=== PATIENT | male | born 1980 | race Caucasian/White ===

== ENCOUNTER 2016-11-20 09:30 | Emergency (ER) | payer SELFPAY ==
[~2016-11-20] VITALS: Ht 193 cm; Wt 76.0 kg
[2016-11-20 09:33] VITALS: BP 128/90; PULSE 96; RESP 16; TEMP 98.2; O2SAT 98
--- NOTE | 2016-11-20 10:12 | PD ---
HPI Chief Complaint: Flank/Kidney Pain Time Seen by Provider: 10:07 Travel History International Travel<30 days: No Contact w/Intl Traveler<30days: No Traveled to known affect area: No History of Present Illness HPI This 36-year-old male is complaining of right flank pain. The pain started last night and this been coming and going since then. Quite severe at times. He had some nausea and vomiting. He thinks kidney stone about a year he has no allergies. No history of trauma. Pain is aggravated by urination. Says that he was a heavy drinker years ago and has a history of pancreatitis [facility] Past Medical History Kidney Stones: Yes Tetanus Vaccination: > 5 Years Influenza Vaccination: No Past Surgical History Cholecystectomy: Yes Social History Alcohol Use: Yes (SOCIAL) Tobacco Use: Yes (SOCAIL) Substance Use: No Allergies-Medications (Allergen,Severity, Reaction): Coded Allergies: No Known Allergies (Unverified , 11/20/16) Reported Meds & Prescriptions Reported Meds & Active Scripts Active No Active Prescriptions or Reported Medications Review of Systems General / Constitutional: No: Fever, Chills Eyes: No: Diploplia, Blurred Vision HENT: No: Headaches, Vertigo Cardiovascular: No: Chest Pain or Discomfort Respiratory: No: Cough, Shortness of Breath Gastrointestinal: Positive: Nausea, Vomiting Genitourinary: Positive: Flank Pain Musculoskeletal: No: Myalgias, Arthralgias Skin: No Rash, No Dryness Neurologic: No: Focal Abnormalities Psychiatric: No: Anxiety Endocrine: No: Cold Intolerance Hematologic/Lymphatic: No: Easy Bruising Physical Exam Narrative GENERAL: Well-developed male SKIN: Focused skin assessment warm/dry. HEAD: Atraumatic. Normocephalic. EYES: Pupils equal and round. No scleral icterus. No injection or drainage. ENT: No nasal bleeding or discharge. Mucous membranes pink and moist. NECK: Trachea midline. No JVD. CARDIOVASCULAR: Regular rate and rhythm. No murmur appreciated. RESPIRATORY: No accessory muscle use. Clear to auscultation. Breath sounds equal bilaterally. GASTROINTESTINAL: Abdomen soft, non-tender, nondistended. Hepatic and splenic margins not palpable. Some right CVA tenderness MUSCULOSKELETAL: No obvious deformities. No clubbing. No cyanosis. No edema. NEUROLOGICAL: Awake and alert. No obvious cranial nerve deficits. Motor grossly within normal limits. Normal speech. PSYCHIATRIC: Appropriate mood and affect; insight and judgment normal. Data Data Last Documented VS Vital Signs Date Time Temp Pulse Resp B/P Pulse Ox O2 Delivery O2 Flow Rate FiO2 11/20/16 09:33 98.2 96 16 128/90 98 Orders Urinalysis - C+S If Indicated (11/20/16 10:01) Basic Metabolic Panel (Bmp) (11/20/16 10:10) Complete Blood Count With Diff (11/20/16 10:10) Ct Abd/Pel W/O Iv Contrast (11/20/16 10:10) Ketorolac Inj (Toradol Inj) (11/20/16 10:15) Ondansetron Inj (Zofran Inj) (11/20/16 10:15) Sodium Chloride 0.9% Flush (Ns Flush) (11/20/16 10:15) Hydromorphone Pf Inj (Dilaudid Pf Inj) (11/20/16 10:15) Sodium Chlor 0.9% 1000 Ml Inj (Ns 1000 M (11/20/16 11:00) Labs Laboratory Tests Test 11/20/16 11/20/16 10:15 10:50 White Blood Count 6.3 TH/MM3 Red Blood Count 4.94 MIL/MM3 Hemoglobin 14.8 GM/DL Hematocrit 44.4 % Mean Corpuscular Volume 89.9 FL Mean Corpuscular Hemoglobin 30.1 PG Mean Corpuscular Hemoglobin 33.4 % Concent Red Cell Distribution Width 14.1 % Platelet Count 227 TH/MM3 Mean Platelet Volume 9.1 FL Neutrophils (%) (Auto) 57.1 % Lymphocytes (%) (Auto) 27.2 % Monocytes (%) (Auto) 9.5 % Eosinophils (%) (Auto) 4.9 % Basophils (%) (Auto) 1.3 % Neutrophils # (Auto) 3.6 TH/MM3 Lymphocytes # (Auto) 1.7 TH/MM3 Monocytes # (Auto) 0.6 TH/MM3 Eosinophils # (Auto) 0.3 TH/MM3 Basophils # (Auto) 0.1 TH/MM3 CBC Comment DIFF FINAL Differential Comment Sodium Level 143 MEQ/L Potassium Level 3.6 MEQ/L Chloride Level 105 MEQ/L Carbon Dioxide Level 28.4 MEQ/L Anion Gap 10 MEQ/L Blood Urea Nitrogen 15 MG/DL Creatinine 0.83 MG/DL Estimat Glomerular Filtration 105 ML/MIN Rate Random Glucose 112 MG/DL Calcium Level 8.4 MG/DL Urine Collection Type CLEAN CATCH Urine Color YELLOW Urine Turbidity CLEAR Urine pH 6.0 Urine Specific [place] 1.012 Urine Protein NEG mg/dL Urine Glucose (UA) NEG mg/dL Urine Ketones NEG mg/dL Urine Occult Blood LARGE Urine Nitrite NEG Urine Bilirubin NEG Urine Leukocyte Esterase NEG Urine RBC 100-200 /hpf Urine WBC 0-2 /hpf Urine Squamous Epithelial 0-5 /hpf Cells Microscopic Urinalysis Comment CULT NOT INDICATED Urine Collection Time 10:50 MDM Medical Decision Making Medical Screen Exam Complete: Yes Emergency Medical Condition: Yes Medical Record Reviewed: Yes Differential Diagnosis Differential includes musculoskeletal pain, renal colic, pyelonephritis Narrative Course Urine does show red cells. CT scan of the abdomen and pelvis does not show a obstructing ureteral stone. Patient did get relief with pain medication may have a stone which is not apparent on CT scan or other etiology for his hematuria. He released with pain medications recommendations for follow-up with urology Diagnosis Primary Impression: Hematuria Scripts Oxycodone-Acetaminophen (Percocet)10-325 mg Tab1 Tab PO Q4H PRN (PAIN) #20 TAB Ref 0 Prov:Merlin Cho MD 11/20/16 Disposition: 01 DISCHARGE HOME Condition: Stable Merlin Cho MD Nov 20, 2016 10:12
[2016-11-20] MEDS ORDERED: KETOROLAC TROMETHAMINE 30 MG/ML (IVP) VIAL IVP ONE (10:15)
[2016-11-20] MEDS ORDERED: HYDROmorphone HCL PF 1 MG/ML VIAL IVS ONE (10:15)
[2016-11-20] MEDS ORDERED: SODIUM CHLORIDE 0.9% FLUSH 10 ML FLUSH IVF PRN (10:15)
[2016-11-20] MEDS ORDERED: ONDANSETRON HCL 4 MG/2 ML VIAL IVP ONE (10:15)
[2016-11-20 10:19] LABS: AUTOMATED NEUTROPHIL # 3.6 TH/MM3 (1.8-7.7); BASOPHIL # 0.1 TH/MM3 (0-0.2); BASOPHIL % 1.3 % (0.0-2.0); EOSINOPHIL # 0.3 TH/MM3 (0-0.4); EOSINOPHIL % 4.9 % (0.0-4.0); HEMATOCRIT 44.4 % (39.0-51.0); HEMO FLAGS DIFF FINAL; LYMPH % 27.2 % (9.0-44.0); LYMPHOCYTE # 1.7 TH/MM3 (1.0-4.8); MEAN CELL VOLUME 89.9 FL (80.0-100.0); MEAN CORPUSCULAR HEMOGLOBIN 30.1 PG (27.0-34.0); MEAN CORPUSCULAR HGB CONC 33.4 % (32.0-36.0); MONO % 9.5 % (0.0-8.0); NEUT % 57.1 % (16.0-70.0); PLATELET COUNT 227 TH/MM3 (150-450); RED BLOOD COUNT 4.94 MIL/MM3 (4.50-5.90); RED CELL DISTRIBUTION WIDTH 14.1 % (11.6-17.2); WHITE BLOOD COUNT 6.3 TH/MM3 (4.0-11.0)
[2016-11-20 10:31] LABS: POTASSIUM 3.6 MEQ/L (3.5-5.1)
[2016-11-20 10:34] LABS: BICARBONATE 28.4 MEQ/L (21.0-32.0)
--- NOTE | 2016-11-20 10:50 | RADHPO ---
EXAM DATE/TIME: 11/20/2016 10:27 [facility] COMPARISON: No previous studies available for comparison. INDICATIONS : Right flank pain. ORAL CONTRAST: No oral contrast ingested. RADIATION DOSE: 8.76 CTDIvol (mGy) MEDICAL HISTORY : Renal calculi. SURGICAL HISTORY : Cholecystectomy. ENCOUNTER: Initial ACUITY: 1 day PAIN SCALE: 7/10 LOCATION: Right flank TECHNIQUE: Volumetric scanning of the abdomen and pelvis was performed. Using automated exposure control and ad justment of the mA and/or kV according to patient size, radiation dose was kept as low as reasonably achievable to obtain optimal diagnostic quality images. FINDINGS: CT Abdomen: There are calcifications throughout the pancreas from prior episodes of pancreatitis. The re are multiple tiny stones in both kidneys. The right kidney there are 5 maybe 6 separate tiny 1-2 m m stones. In the left kidney there are 3 separate 1-2 mm stones. There is no ureteral stone and there is no hydronephrosis on either side. The liver, spleen, adrenals are unremarkable. There is no evide nce for any appreciable pathological adenopathy, free fluid, or bowel obstruction. CT pelvis: There is no evidence for mass, abscess formation, or any significant adenopathy within the pelvis. The prostate gland is inhomogeneous and measures 4.2 x 4.9 cm in AP and transverse diameters and nonspecific. There are a few gas bubbles within the iliac bone near the SI joint characteristic of pneumatocysts probably of no clinical significance. CONCLUSION: Calcifications in the pancreas from prior episodes of chronic pancreatitis and/or mul tiple tiny nonobstructing stones in both kidneys. Dinesh Anthony MD on November 20, 2016 at 10:42 Board Certified Radiologist. This report was verified electronically.
[2016-11-20 10:54] LABS: BLOOD, URINE LARGE (NEG); GLUCOSE,URINE NEG (NEG); KETONE, URINE NEG (NEG); NITRITE,URINE NEG (NEG)
[2016-11-20] MEDS ORDERED: SODIUM CHLOR 0.9% 1000 ML INJ 1,000 ML IV ONE (11:00)
[2016-11-20 11:03] LABS: METHOD OF COLLECTION CLEAN CATCH; URINE COLOR YELLOW (YELLW/STRAW); WBC, URINE 0-2 /hpf (0-5)
[2016-11-20 11:04] LABS: COMMENT (UR) CULT NOT INDICATED; CULTURE IF INDICATED CULT NOT INDICATED; RBC, URINE 100-200 /hpf (0-3); SQUAMOUS EPITHELIAL CELL URINE 0-5 /hpf (0-5)
[2016-11-20] MEDS ORDERED: PERC10TA27 PO (11:49)
[2016-11-20 12:01] VITALS: BP 134/80
== END 2016-11-20 12:08 | disposition home or self-care (01) ==
LOC: PHED 09:30
DX: R31.9 Hematuria, unspecified (principal); R11.2 Nausea with vomiting, unspecified; Z87.442 Personal history of urinary calculi; Z72.0 Tobacco use
CPT/HCPCS: 74176; 80048; 81001; 85025; 96374; 96375; 99284; J1170; J1885; J2405

== ENCOUNTER 2016-11-24 12:00 | Emergency (ER) | payer MEDICAID, OTHER ==
[~2016-11-24] VITALS: Ht 193 cm; Wt 74.0 kg
[~2016-11-24 12:00] MED LIST: PERC10TA27 PO
[2016-11-24 12:05] VITALS: BP 120/85; PULSE 95; RESP 16; TEMP 98; O2SAT 96
[2016-11-24] MEDS ORDERED: GABA600T PO (12:09)
--- NOTE | 2016-11-24 12:32 | PD ---
HPI Chief Complaint: Pain: Acute or Chronic Time Seen by Provider: 12:31 Travel History International Travel<30 days: No Contact w/Intl Traveler<30days: No Traveled to known affect area: No History of Present Illness HPI 36-year-old male presents the emergency Department with left anterior ankle pain since helping his friend put up a fence 2 days ago. Patient describes the pain as the stiffness, and it feels like a resting and when he moves it. He denies any specific injury. Pain is currently 8/10. He is tried some Aleve and Percocet he had left over from previous kidney stone. Patient states the pain is not improving. Patient has no history of gout or previous injury to this area. He denies numbness tingling or weakness. He has no known drug allergies. PFSH Past Medical History Hx Anticoagulant Therapy: No Diabetes: No Diminished Hearing: No Kidney Stones: Yes Tetanus Vaccination: Unknown Past Surgical History Cholecystectomy: Yes Social History Alcohol Use: Yes (SOCIAL) Tobacco Use: Yes (SOCAIL) Substance Use: No Allergies-Medications (Allergen,Severity, Reaction): Coded Allergies: No Known Allergies (Unverified , 11/24/16) Reported Meds & Prescriptions Reported Meds & Active Scripts Active Prednisone 20 Mg Tab 20 Mg PO BID Tramadol (Tramadol HCl) 50 Mg Tab 50 Mg PO Q6H PRN Reported Gabapentin 600 Mg Tab 600 Mg PO BID Review of Systems Except as stated in HPI: all other systems reviewed are Neg General / Constitutional: No: Fever Eyes: No: Visual changes HENT: No: Headaches Cardiovascular: No: Chest Pain or Discomfort Respiratory: No: Shortness of Breath Gastrointestinal: No: Abdominal Pain Genitourinary: No: Dysuria Musculoskeletal: Positive: Arthralgias, Limited ROM, Pain Skin: No Rash Neurologic: No: Weakness Psychiatric: No: Depression Endocrine: No: Polydipsia Hematologic/Lymphatic: No: Easy Bruising Physical Exam Narrative GENERAL: Patient appears in no acute distress. SKIN: Warm and dry. Normal color. Normal turgor. No rash. HEAD: Atraumatic. Normocephalic. EYES: Pupils equal and round. No scleral icterus. No injection or drainage. ENT: No nasal bleeding or discharge. Mucous membranes pink and moist. Pharynx is clear. NECK: Trachea midline. No JVD. Supple nontender. CARDIOVASCULAR: Regular rate and rhythm. RESPIRATORY: No accessory muscle use. Clear to auscultation. Breath sounds equal bilaterally. MUSCULOSKELETAL: Extremities without clubbing, cyanosis, or edema. No obvious deformities. Left ankle appears normal with perhaps some mild effusion noted. He has tenderness along the anterior ankle consistent with a flexor tendinitis. No pain with palpation of the malleoli or foot. NEUROLOGICAL: Awake and alert. No obvious cranial nerve deficits. Motor grossly within normal limits. Five out of 5 muscle strength in the arms and legs. Normal speech. PSYCHIATRIC: Appropriate mood and affect; insight and judgment normal. Data Data Last Documented VS Vital Signs Date Time Temp Pulse Resp B/P Pulse Ox O2 Delivery O2 Flow Rate FiO2 11/24/16 12:05 98.0 95 16 120/85 96 Orders Ice/Cold Pack (11/24/16 12:28) Ankle, Complete ([id number]) (11/24/16 12:32) Ketorolac Inj (Toradol Inj) (11/24/16 12:45) Prednisone (Deltasone) (11/24/16 13:45) MDM Medical Decision Making Medical Screen Exam Complete: Yes Emergency Medical Condition: Yes Medical Record Reviewed: Yes Differential Diagnosis Tenosynovitis. Left ankle sprain. Possible fracture. Narrative Course Patient is medically stable at time of exam. X-rays of the left ankle are obtained and ice packs are placed. Patient is given Toradol 60 mg IM. X-ray of the left ankle shows no acute process per radiologist. Patient is given prednisone 60 mg by mouth now. Patient will be continued on prednisone 20 mg twice a day 7 days. Patient is given tramadol 50 mg one every 6 hours when necessary pain #20. Patient is to use heat followed by ice, and stretching, and limited walking for the next several days. Patient should follow with the primary care physician or return to emergency department if symptoms worsen as needed. Diagnosis Primary Impression: Tenosynovitis of ankle Referrals: Primary Care Physician Patient Instructions: General Instructions, Lower Extremity Tenosynovitis (DC) Additional Instructions: X-ray of the left ankle shows no acute process per radiologist. Patient is given prednisone 60 mg by mouth now. Patient will be continued on prednisone 20 mg twice a day 7 days. Patient is given tramadol 50 mg one every 6 hours when necessary pain #20. Patient is to use heat followed by ice, and stretching, and limited walking for the next several days. Patient should follow with the primary care physician or return to emergency department if symptoms worsen as needed. Med/Other Pt SpecificInfo: Prescription(s) given Scripts Prednisone 20 Mg Tab20 Mg PO BID #14 TAB Prov:Mayra Maria MD 11/24/16 Tramadol 50 Mg Tab50 Mg PO Q6H PRN (PAIN) #20 TAB Prov:Mayra Maria MD 11/24/16 Disposition: 01 DISCHARGE HOME Condition: Stable James Honeycutt Nov 24, 2016 12:32
[2016-11-24] MEDS ORDERED: KETOROLAC TROMETHAMINE 60 MG/2 ML (IM) VIAL IM ONE (12:45)
--- NOTE | 2016-11-24 13:31 | RADHPO ---
EXAM DATE/TIME: 11/24/2016 13:05 [facility] COMPARISON: No previous studies available for comparison. INDICATIONS : Left ankle pain for 3 days. MEDICAL HISTORY : None. SURGICAL HISTORY : None. ENCOUNTER: Initial ACUITY: 3 days PAIN SCORE: 8/10 LOCATION: Left ankle. FINDINGS: Three view exam was performed of the left ankle. The bony structures are in normal alignment. No ev idence of fracture, dislocation, or soft tissue swelling. The ankle mortise is intact. No radiopaqu e foreign bodies are seen. Bony mineralization is normal. CONCLUSION: Unremarkable examination of the left ankle. Jarvis Hernandez MD on November 24, 2016 at 13:29 Board Certified Radiologist. This report was verified electronically.
[2016-11-24] MEDS ORDERED: TRAM50TA PO (13:43)
[2016-11-24] MEDS ORDERED: PRED20 PO (13:43)
[2016-11-24] MEDS ORDERED: predniSONE 20 MG TAB PO ONE (13:45)
[2016-11-24 13:56] VITALS: RESP 16
== END 2016-11-24 14:07 | disposition home or self-care (01) ==
LOC: PHEFT 12:00
DX: M65.872 Other synovitis and tenosynovitis, left ankle and foot (principal); Z72.0 Tobacco use
CPT/HCPCS: 73610; 96372; 99283; J1885; J7512

== ENCOUNTER 2016-12-08 10:42 | Emergency (ER) | payer MEDICAID, OTHER ==
[~2016-12-08] VITALS: Ht 193 cm; Wt 76.0 kg
[~2016-12-08 10:42] MED LIST changes: +GABA600T PO; -PERC10TA27 PO; +PRED20 PO; +TRAM50TA PO
[2016-12-08 10:45] VITALS: BP 129/84; PULSE 95; RESP 16; TEMP 98.2; O2SAT 98
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
[2016-12-08] MEDS ORDERED: KETOROLAC TROMETHAMINE 60 MG/2 ML (IM) VIAL IM ONE (11:45)
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
[2016-12-08] MEDS ORDERED: traMADol HCL 50 MG TAB PO ONE (12:00)
[2016-12-08] MEDS ORDERED: IBUP800T23 PO (12:02)
[2016-12-08] MEDS ORDERED: TRAM50TA PO (12:02)
[2016-12-08] MEDS ORDERED: MUPI2%T TOPICAL (12:02)
== END 2016-12-08 12:37 | disposition home or self-care (01) ==
LOC: PHEFT 10:42
DX: S60.212A Contusion of left wrist, initial encounter (principal); S00.83XA Contusion of other part of head, initial encounter; S63.612A Unspecified sprain of right middle finger, initial encounter; V19.9XXA Pedal cyclist (driver) (passenger) injured in unspecified traffic accident, initial encounter
CPT/HCPCS: 70486; 73110; 73140; 99284; L3908